=== PATIENT | male | born 1975 | race Caucasian/White ===

== ENCOUNTER 2024-03-06 08:50 | Emergency (ER) | payer OTHER, SELFPAY ==
[2024-03-06] VITALS (11 sets, daily range): BP systolic 126–148; BP diastolic 78–88; PULSE 57–72; RESP 18; TEMP 36; O2SAT 96–99; BMI 30.5
--- NOTE | 2024-03-06 09:18 | CRLHL7_ITS ---
For Patients: As a result of the 21st Century Cures Act, medical imaging exams and procedure reports are released immediately into your electronic medical record. You may view this report before your referring provider. If you have questions, please contact your health care provider. INDICATION: Fall. Hit back of head 03/04/2024. Headache and nausea. COMPARISON: None TECHNIQUE: CT examination of the head was performed as axial sections without intravenous contrast. Images were obtained from the vertex of the skull through the skull base. Please note that all CT scans at this facility use dose modulation, iterative reconstruction, and/or weight-based dosing when appropriate to reduce radiation dose to as low as reasonably achievable. FINDINGS: Sulci and ventricles are overall of normal caliber for patient age. Streak artifact somewhat limits the evaluation in the posterior fossa and the skull base especially the temporal lobes and the contents of the middle cranial fossa. There is a subdural hematoma noted. This is primarily bifrontal, right greater than left and more pronounced inferiorly. Also question an inferior frontal contusion. See series 2, image 22 where there may be a small parenchymal contusion in the gyrus rectus. There is also a small amount of interhemispheric subdural hemorrhage. There are some punctate densities in the right parieto-occipital location which may represent a small amount of subdural blood deep within the sulci. Consider an angiogram to rule out a ruptured aneurysm. It is not clear that this is entirely posttraumatic in nature. No acute calvarial injury. I discussed the above findings with Dr. Taty Napier at 9:40 a.m. on March 06, 2024 IMPRESSION: 1. Bilateral subdural hematoma. This is mainly bifrontal, right greater than left with maximum depth of about 6 millimeters. There may also be subtle subarachnoid blood posteriorly in the parieto-occipital location. I also question in inferior left frontal contusion though artifact limits the examination in this area. A small amount of interhemispheric subdural hemorrhage is also noted anteriorly. There is no significant mass effect upon any cerebral structure. No intraventricular hemorrhage 2. Consider an angiogram for the possibility of a ruptured vascular abnormality. Please note that all CT scans at this facility use dose modulation, iterative reconstruction, and/or weight-based dosing when appropriate to reduce radiation dose to as low as reasonably achievable. Dictated by Jeremy Fox MD @ 03/06/2024 9:46:11 AM (Electronically Signed)
[2024-03-06 09:48] LABS: Hemoglobin* 16.2 gm/dL (13.5-17.5); Immature Granulocytes Pct Auto 0.1 %; Lymphocytes Percent Auto 9.8 % (20-44); Mean Corpuscular HGB Conc 34 gm/dL (32-36); Mean Corpuscular Hemoglobin 30 pg (26-34); Mean Corpuscular Volume 88 fL (80-100); Monocytes Percent Auto 7.2 % (0.0-11.0); Neutrophils Percent Auto 82.9 % (42.0-72.0); Platelet Count* 318 K/uL (140-440); RDW Coefficient of Variation % 12.2 % (11.5-15.5); Red Blood Count 5.43 m/uL (4.30-5.90); White Blood Count* 16.42 K/uL (4.50-11.00)
[2024-03-06 09:49] LABS: Slide Review Reflex No
--- NOTE | 2024-03-06 09:53 | CT_ITS ---
Patient: JELANI RO Facility:?[facility] RIS Patient ID:?[id number] Site Patient [id number]:?[id number]. Site :?[id number] Study:?CT-Head Angio W/ 95CC ISOVUE 370-03/06/2024 10:21:08 AM Ordering Physician:Stephanie Posey Final Report: DATE: 03/06/2024 CLINICAL HISTORY: Patient with headache. TECHNIQUE: Standard helical CT image acquisition through the intracranial circulation following intravenous administration of contrast material with bolus tracking. 2D and 3D MIP images for post-processing were performed and interpreted on an independent workstation and 3D images were permanently archived. COMPARISON: CT same day. FINDINGS: There is no cerebral aneurysm or large vessel occlusion. The right internal carotid artery is normal. The right middle cerebral artery and its branches are normal. The right anterior cerebral artery and its branches are normal. The left internal carotid artery is normal. The left middle cerebral artery and its branches are normal. The left anterior cerebral artery and its branches are normal. The anterior communicating artery is well visualized and appears normal. The right vertebral artery and PICA are normal. The left vertebral artery and PICA are normal. The vertebral arteries are codominant. The basilar artery is patent and appears normal. The right posterior cerebral artery is normal. The left posterior cerebral artery is normal. The visualized venous structures are patent. IMPRESSION: Patent proximal intracranial vasculature without intracranial aneurysms. Please note that all CT scans at this facility use dose modulation, iterative reconstruction, and/or weight-based dosing when appropriate to reduce radiation dose to as low as reasonably achievable. Dictated by Jose Luis Vanegas MD @ 03/06/2024 3:45:24 PM Signed by:?Jose Luis Vanegas MD @03/06/2024 3:45:24 PM (Electronic Signature)
[2024-03-06 09:59] LABS: Albumin* 5.2 g/dL (3.3-5.0); Chloride* 101 mmol/L (96-114); Sodium* 142 mmol/L (135-149)
[2024-03-06 10:01] LABS: Creatinine* 0.8 mg/dL (0.5-1.5); Est. Creatinine Clearance* 106.72; Estimated Glomerular Filt Rate 110 ml/min
[2024-03-06 10:02] LABS: Alanine Aminotransferase* 34 U/L (4-50); Alkaline Phosphatase* 113 U/L (40-150); Anion Gap 13 mEq/L (7-15); Aspartate Amino Transferase* 30 U/L (12-35); Bilirubin Direct* 0.4 mg/dL (0.0-0.5); Blood Urea Nitrogen* 18 mg/dL (5-24); Carbon Dioxide* 28 mmol/L (20-32); Glucose* 129 mg/dL (60-115); Magnesium* 2.5 mg/dL (1.5-2.6); Total Protein* 8.5 g/dL (6.0-8.3)
[2024-03-06] MEDS: ONDANSETRON 2 MG/ML inj 4 MG IVP (10:03)
[2024-03-06 10:05] LABS: D Dimer Quantitative* 0.41 ug/ml (0.00-0.50); INR 0.95 (0.91-1.10); Partial Thromboplastin Time* 27 Seconds (23-33); Prothrombin Time 13.2 Seconds
--- NOTE | 2024-03-06 10:54 | ED_ITS ---
HPI - General Adult General Chief complaint: Head Injury/Pain Stated complaint: Fall possible head injury headache dizzy Time Seen by Provider: 03/06/24 09:06 History of Present Illness HPI narrative: Patient is a 48-year-old male here with his for evaluation of headache following an incident on Monday evening. Presents to the ER on Monday. He notes that he was in the garage on Monday around 7:00 p.m.. He really has no memory of what happened, he says that he found himself inside the house, he had pain in the back of his head and they presume that he must have passed out and hit his head because they found his glasses underneath the grill and the garage. However, he has no memory of becoming lightheaded or falling, he has no memory of waking up on the garage floor and has no memory of how he got into the house. Since then, he has had a frontal headache and has had multiple episodes of vomiting. He says he was vomiting every couple of hours although last night he did somewhat better. He continues to note some nausea however. He also feels like his hearing is somewhat decreased and notes that his balance seems a little off. He denies prior history of seizure or headaches. He denies recent illness, other vomiting or diarrhea, fevers, rashes etcetera. He is not anticoagulated. His general health is good, he had a colonoscopy a couple weeks ago, a polyp was removed but he denies any bloody or black stools. He does not smoke. Drinks rarely. No medications. He did take some Tylenol this morning. Related Data Allergies Allergy/AdvReac Type Severity Reaction Status Date / Time Unable to Assess Allergy Unverified 03/06/24 08:58 Review of Systems Status of ROS: Reports: 10 or more systems reviewed and unremarkable except as noted in History and below PFSH PFS Social History Smoking Status: Never smoker Do you use any of these nicotine containing products: None How often do you have a drink containing alcohol: never AUDIT-C Alcohol total score: 0 Non-prescribed substance use: denies use Exam Narrative: Exam Narrative: Vital signs as noted above. In general, an alert, well-appearing patient. He looks comfortable, speaking easily. Head: Normocephalic, atraumatic. I do not feel any posterior hematoma, there is no laceration abrasion. He says the swelling has decreased over the past 24 hours. Eyes: Pupils are equal reactive. Extraocular movements are full. Conjunctivae are normal. ENT: Mucous membranes are moist. Throat is normal. Neck: Supple without lymphadenopathy. Nontender to palpation. Heart: Bradycardic, regular. No significant murmur. Lungs: Clear bilaterally. No increased work of breathing, crackles or wheezes. Abdomen: Soft and nontender. No organomegaly. Extremities: Well perfused. No edema. No calf tenderness. Pulses intact. Neurologic: Patient is alert and oriented to person and place. Speech is fluent. Face is symmetric. Moves all extremities equally. He is mildly ataxic when testing his gait, sways a bit withdrawn GERD testing although he did not fall over. Minimal ataxia noted on finger-nose testing, he was able to correct with practice. Heel-cruz testing normal. Affect: Normal. Skin: Warm and dry. Well perfused. Const: Vital Signs, click to edit/add: Vital Signs - 24 hr 03/06/24 08:53 03/06/24 09:31 03/06/24 09:32 Temperature 96.8 F L Pulse Rate 68 60 Pulse Rate [Left P ulse Oximeter] 62 Respiratory Rate 18 Blood Pressure 126/78 Blood Pressure [Le ft Upper Arm] 148/82 H Pulse Oximetry 97 96 97 Oxygen Delivery Me thod Room Air 03/06/24 09:36 03/06/24 09:45 03/06/24 10:00 Temperature Pulse Rate 57 L 60 Pulse Rate [Left P ulse Oximeter] Respiratory Rate Blood Pressure Blood Pressure [Le ft Upper Arm] Pulse Oximetry 97 97 96 Oxygen Delivery Me thod 03/06/24 10:02 03/06/24 10:15 03/06/24 10:30 Temperature Pulse Rate 61 58 L 72 Pulse Rate [Left P ulse Oximeter] Respiratory Rate Blood Pressure 137/87 Blood Pressure [Le ft Upper Arm] Pulse Oximetry 97 99 98 Oxygen Delivery Me thod 03/06/24 10:32 03/06/24 10:45 Temperature Pulse Rate 71 71 Pulse Rate [Left P ulse Oximeter] Respiratory Rate Blood Pressure 128/88 Blood Pressure [Le ft Upper Arm] Pulse Oximetry 98 97 Oxygen Delivery Me thod Course Course ED Course: Following initial evaluation, I sent patient for CT of the head to evaluate for intracranial hemorrhage. An EKG was also ordered, in addition to blood work. By my review, CT scan did show subdural blood particularly in the right frontal area, final radiology read also notes possible subarachnoid blood: FINDINGS: Sulci and ventricles are overall of normal caliber for patient age. Streak artifact somewhat limits the evaluation in the posterior fossa and the skull base especially the temporal lobes and the contents of the middle cranial fossa. There is a subdural hematoma noted. This is primarily bifrontal, right greater than left and more pronounced inferiorly. Also question an inferior frontal contusion. See series 2, image 22 where there may be a small parenchymal contusion in the gyrus rectus. There is also a small amount of interhemispheric subdural hemorrhage. There are some punctate densities in the right parieto- occipital location which may represent a small amount of subdural blood deep within the sulci. Consider an angiogram to rule out a ruptured aneurysm. It is not clear that this is entirely posttraumatic in nature. No acute calvarial injury. I discussed the above findings with Dr. Taty Napier at 9:40 a.m. on March 06, 2024 IMPRESSION: 1. Bilateral subdural hematoma. This is mainly bifrontal, right greater than left with maximum depth of about 6 millimeters. There may also be subtle subarachnoid blood posteriorly in the parieto-occipital location. I also question in inferior left frontal contusion though artifact limits the examination in this area. A small amount of interhemispheric subdural hemorrhage is also noted anteriorly. There is no significant mass effect upon any cerebral structure. No intraventricular hemorrhage 2. Consider an angiogram for the possibility of a ruptured vascular abnormality. Overall, my concern would be that this represents a primary subarachnoid bleed with syncope plus or minus seizure on Monday evening, now with subdural bleeding and evidence of some traumatic bleeding in the brain. I spoke with Dr. Perez at [facility] who has accepted the patient in transfer to the ICU there. I did order CT angiogram to evaluate for possible aneurysm. Preliminary read is as follows:Preliminary Report: The thoracic aorta is nonaneurysmal. Patent common carotid arteries. The carotid bifurcations demonstrate no significant atherosclerotic plaque or filling defect. Patent distal internal carotid arteries. Patent, codominant bilateral vertebral arteries. Dictated by Mickey Choi MD @ 03/06/2024 10:41:05 AM Read by: Mickey Choi MD @03/06/2024 10:41:12 AM No reported aneurysm although aneurysm is not specifically mentioned as ruled out. This is a preliminary read. He has remained neurologically intact and without further significant symptoms while in the emergency department. His blood pressures were under 140 systolic without treatment, he did receive Keppra 500 mg IV as well as Zofran. I had intended to order some morphine for him for headache but he was transferred prior to receiving that. Labs are notable for a white blood cell count of 16, normal hemoglobin, normal coags, normal metabolic panel, magnesium, LFTs. Negative troponin. He had an EKG which by my review showed a sinus rhythm ventricular rate of 63. No acute ST segment changes. Critical care 30 minutes Vital Signs Vital signs: Initial Vital Signs Temperature 96.8 F L 03/06/24 08:53 Temperature Source Temporal Artery Scan 03/06/24 08:53 Pulse Rate 62 03/06/24 08:53 Pulse Rhythm Regular 03/06/24 08:53 Pulse Strength 3+ Normal 03/06/24 08:53 Respiratory Rate 18 03/06/24 08:53 Blood Pressure 148/82 H 03/06/24 08:53 Blood Pressure Mean 104 03/06/24 08:53 Blood Pressure Position Sitting 03/06/24 08:53 Pulse Oximetry 97 03/06/24 08:53 Oxygen Delivery Method Room Air 03/06/24 08:53 Vital Signs Temperature 96.8 F L 03/06/24 08:53 Pulse Rate 62 03/06/24 08:53 Respiratory Rate 18 03/06/24 08:53 Blood Pressure 148/82 H 03/06/24 08:53 Pulse Oximetry 97 03/06/24 08:53 Oxygen Delivery Method Room Air 03/06/24 08:53 Temperature 96.8 F L 03/06/24 08:53 Pulse Rate 71 03/06/24 10:45 Respiratory Rate 18 03/06/24 08:53 Blood Pressure 128/88 03/06/24 10:32 Pulse Oximetry 97 03/06/24 10:45 Oxygen Delivery Method Room Air 03/06/24 08:53 Medications Administered Medications: Discontinued Medications Generic Name Dose Route Start Last Admin Trade Name Freq PRN Reason Stop Dose Admin Levetiracetam 500 mg/ Sodium 105 mls @ 420 mls/hr 03/06/24 09:49 03/06/24 10:45 Chloride IVPB 03/06/24 09:50 Infused ONCE ONE Infusion Ondansetron HCl 4 mg 03/06/24 09:54 03/06/24 10:03 Ondansetron 2 Mg/Ml Inj IVP 03/06/24 09:55 4 mg ONCE ONE Administration Medical Decision Making Lab Data Labs: Lab Results 03/06/24 Range/Units 09:28 WBC 16.42 H (4.50-11.00) K/uL RBC 5.43 (4.30-5.90) m/uL Hgb 16.2 (13.5-17.5) gm/dL Hct 48.0 (37.0-53.0) % MCV 88 (80-100) fL MCH 30 (26-34) pg MCHC 34 (32-36) gm/dL RDW Coeff of Yannick 12.2 (11.5-15.5) % Plt Count 318 (140-440) K/uL Neut % (Auto) 82.9 H (42.0-72.0) % Lymph % (Auto) 9.8 L (20-44) % [place] % (Auto) 7.2 (0.0-11.0) % Eos % (Auto) 0.0 (0.0-7.0) % Baso % (Auto) 0.0 (0.0-3.0) % Neut # (Auto) 13.60 H (1.7-7.0) K/uL Lymph # (Auto) 1.60 (0.90-2.90) K/uL [place] # (Auto) 1.20 H (0.00-0.90) K/UL Eos # (Auto) 0.00 (0.00-0.50) K/uL Baso # (Auto) 0.00 (0.00-0.30) K/uL Abs Immat Gran (auto) 0.00 (0.00-0.30) K/uL Imm/Tot Granulo (auto) 0.1 % INR 0.95 (0.91-1.10) APTT 27 (23-33) Seconds D-Dimer Quant (PE/DVT) 0.41 (0.00-0.50) ug/ml Sodium 142 (135-149) mmol/L Potassium 4.0 (3.6-5.1) mmol/L Chloride 101 (96-114) mmol/L Carbon Dioxide 28 (20-32) mmol/L Anion Gap 13 (7-15) mEq/L BUN 18 (5-24) mg/dL Creatinine 0.8 (0.5-1.5) mg/dL Estimated Creat Clear 106.72 Estimated GFR 110 ml/min Glucose 129 H (60-115) mg/dL Calcium 10.0 (8.4-10.6) mg/dL Magnesium 2.5 (1.5-2.6) mg/dL Total Bilirubin 1.0 (0.1-1.5) mg/dL Direct Bilirubin 0.4 (0.0-0.5) mg/dL AST 30 (12-35) U/L ALT 34 (4-50) U/L Alkaline Phosphatase 113 (40-150) U/L Total Protein 8.5 H (6.0-8.3) g/dL Albumin 5.2 H (3.3-5.0) g/dL POC Troponin I 0.00 L (0.01-0.04) ng/ml Discharge Plan Discharge Clinical Impression: Acute subdural hematoma, Subarachnoid hemorrhage Patient Disposition: [facility] Condition: Stable Stand Alone Forms: MyHealth Info Instructions
== END 2024-03-06 10:50 | disposition short-term general hospital (02) ==
PROVIDERS: Emergency Provider Emergency Medicine; PCP Student in an Organized Health Care Education/Training Program
DX: S06.5XAA Traumatic subdural hemorrhage with loss of consciousness status unknown, initial encounter (principal)
CPT/HCPCS: 36415; 70450; 70496; 70498; 80048; 80076; 83735; 84484; 85025; 85379; 85610; 85730; 93005; 94761; 96365; 96375; 99284; 99285; J1953; J2405; Q9967

== ENCOUNTER 2024-03-06 10:49 | Outpatient (CLI) | payer OTHER, SELFPAY ==
--- OUTSIDE RECORDS SUMMARY | 2024-03-09 08:50 | XMS_ITS | Clinical Summary ---
Author Organization [facility] Address [place], [place] [address] Care Team Providers Care Examination Grader Name Role Phone Alta Vasquez Primary Care Provider [phone] Allergies No known active allergies Medications Medication Sig Dispensed Refills Start Date End Date Status CPAPIndications:MERLY (obstructive sleep apnea) CPAP machine for home use at pressure 12.8 cm/H2o, full face mask x1/3month with a full face cushion x1/mo 1 Device 11 08/19/2020 Active oxyCODONE (ROXICODONE) 5 mg immediate release tabletIndications:T raumatic subdural hematoma with loss of consciousness of 30 minutes or less (HC) Take 1 Tablet (5 mg) by mouth every 6 hours if needed for Pain. 15 Tablet 03/07/2024 Active levETIRAcetam (Keppra) 500 mg tabletIndications:T raumatic subdural hematoma with loss of consciousness of 30 minutes or less (HC) Take 1 Tablet (500 mg) by mouth two times daily for 7 days. 14 Tablet 03/07/2024 4 Active ondansetron (ZOFRAN ODT) 4 mg disintegrating tabletIndications:T raumatic subdural hematoma with loss of consciousness of 30 minutes or less (HC) Place 2 Tablets (8 mg) on the tongue every 8 hours if needed for Nausea/Vomiting for up to 5 days. 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 90 Tablet 3 01/15/2024 4 Discontinu ed(*Med complete/R egimen complete/L evel of care change) lisdexamfetamine (Vyvanse) 20 mg capsuleIndications: Attention deficit disorder (ADD) without hyperactivity Take 1 Capsule (20 mg) by mouth once daily. 30 Capsule 02/26/2024 4 Discontinu ed(*IP Discontinu ed) Hospital, Clinic, or Other Facility Administered Medication Ordered Dose Route Frequency Start Date End Date Status fentaNYL (PF) (SUBLIMAZE) 50 mcg/mL injection 100 mcgIndications:Screening for colon cancer 100 mcg IV ONE TIME 02/14/2024 02/14/2024 Ended midazolam (VERSED) injection 4 mgIndications:Screening for colon cancer 4 mg IV ONE TIME 02/14/2024 02/14/2024 Ended Active Problems Problem Noted Date Diagnosed Date Traumatic subdural hematoma with loss of consciousness of 30 minutes or less 03/06/2024 Sialorrhea 05/29/2017 MERLY 04/03/2017 AHI-52 with oxygen drops 04/10/20 17 DDD (degenerative disc disease), cervical 2016 Encounters Date Type Department Care Team Description 03/08/2024 Patient Outreach [facility] [address] [place] [address] Pilar Schreiber, RN Primary RN Care Management (Lace 12); Hospital F/U 03/07/2024 Orders Only [facility] [address] [facility] [address] [place] [address] Lesly Marin NP <No scans attached> 03/06/2024 11:48 AM CDT - 03/07/2024 2:40 PM CDT Hospital Encounter [facility] [address] [place] [address] Darinel Perez MBBS Malik, Muhammad Ibrahim, MD Traumatic subdural hematoma with loss of consciousness of 30 minutes or less (HC) (Primary Dx) Discharge Disposition: Home Self Care 03/06/2024 Nurse Triage [facility] [address] [place] [address] Alta Vasquez DO Head Injury 02/26/2024 8:55 AM CDT Office Visit [address] [address] Alta Vasquez DO Medication Management (Nothing different) 02/26/2024 Travel 02/14/2024 8:00 AM CDT Office Visit [address] [address] Eulogio Stephens MD Procedure (colonoscopy) 02/14/2024 Travel 02/07/[address] [address] Eulogio Stephens MD Appointment Reminder (Colonoscopy 02/14/24) 01/15/2024 7:15 AM CDT Office Visit [address] [address] Alta Vasquez DO Behavioral Problem (ADHD assessment from online provider - will fax report ) 01/15/2024 Travel 01/02/[address] [address] Alta Vasquez DO Results 01/01/2024 7:15 AM CDT Office Visit [address] [address] Alta Vasquez DO Physical (48 year old ); Behavior Problem (Hard to focus at work, staying concentrated, frustrated ) 01/01/[address] [address] Eulogio Stephens MD Screening 01/01/2024 Travel from Last 3 Months Immunizations Name Administration Dates Next Due Tdap 05/05/2017 Family History Medical History Relation Name Comments Lung cancer Father Stroke Father Relation Name Status Comments Father Social History Tobacco Use Types Packs/Day Years Used Date Smoking Tobacco: Former Cigarettes Q uit: 1990 Smokeless Tobacco: Never Tobacco Cessation:Counseling Given: Yes Alcohol Use Standard Drinks/Week Comments Yes 0 (1 standard drink = 0.6 oz pur e alcohol) occ PHQ-2 Answer Date Recorded PHQ-2 TOTAL SCORE 0 01/01/2024 Social Connections Answer Date Recorded Frequency of Communication with Friends and Fami ly 0 01/01/2024 Financial Resource Strain Answer Date R ecorded Difficulty of Paying Living Expenses 3 01/01/2024 Difficulty of Paying Living Expenses Not on file 01/01/2024 Food Insecurity Answer Date Recorded Worried About Running Out of Food in the Last Ye ar 1 01/01/2024 Transportation Needs Answer Date Record ed Lack of Transportation (Medical) 1 01/01/2024 Housing Stability Answer Date Recorded Unable to Pay for Housing in the Last Year 1 01/01/2024 Sex and Gender Information Value Date Recorded Sex Assigned at Not on file Gender Identity Not on file Sexual Orientation Not on file Obstetrics History Last Filed Vital Signs Vital Sign Reading Time Taken Comments Blood Pressure 128/77 03/07/2024 9:07 AM CDT Pulse 53 03/07/2024 1:00 PM CDT Temperature 36.8 ??C (98.3 ??F) 03/07/2024 7:30 AM CD T Respiratory Rate 18 03/07/2024 7:30 AM CDT Oxygen Saturation 96% 03/07/2024 1:00 PM CDT Inhaled Oxygen Concentration - - Weight 80.8 kg (178 lb 2.1 oz) 03/07/2024 4:00 A M CDT Height 169 cm (5' 6.54) 01/01/2024 7:25 AM CDT Body Mass Index 28.29 01/01/2024 7:25 AM CDT Plan of Treatment Upcoming Encounters Date Type Department Care Team (Late st Contact Info) Description 03/11/2024 12:35 PM CDT Office Visit [facility] [address] [place] [address] Hill Sauceda MD [address] [place] [address] 03/15/2024 3:15 PM CDT Appointment [facility] [place] [address] [place] [address] [place] [address] [place] [address] 04/01/2024 7:15 AM CDT Office Visit [facility] [address] [place] [address] Alta Vasquez DO [address] [place] [address] 05/07/2024 10:00 AM MAIL ORDER SORTER Office Visit [facility] [address] [place] [address] Denis Saunders MD [address] [place] [address] Health Maintenance Due Date Last Done Comments COVID-19 vaccine series ( season) 2024 07/03/2021, 12/25/2020, 11/27/2020 Influenza for age 9-49 02/18/2024 BMI (ht and wt on same day) for age 18+ 12/31/2024 01/01/2024, 05/05/2017, 03/13/2017, Additional history exists Depression screening for age 12+ 01/01/2025 01/02/2024, 01/01/2024, 01/01/2024, Additional history exists Tetanus booster 05/05/2027 05/05/2017 Lipids for age 45-75 12/31/2028 01/01/2024, 05/05/20 17 Colonoscopy through age 75 02/13/203402/13, 02/14/2024, 02/14/2024 Tdap Completed 05/05/2017 HIV for age 15-65 Completed 01/01/2024 Hepatitis C screening for age 18-79 Completed 01/01/2024 Pneumococcal series for age 6-64 Aged Out No longer eligible based on patient's age to complete this topic Procedures Procedure Name Priority Date/Time Associated Diagnosis Comments SCAN-CARDIAC STRIP 03/07/2024 7: 30 AM CDT GLUCOSE METER Timed 03/07/2024 6:[address] HEAD BRAIN WO Routine 03/07/2024 4:20 AM CDT CAL[facility]UM IONIZED [facility]OSPITAL DRAW ONLY Early AM 03/07/2024 3:52 AM CDT CBC WITH AUTO DIFFERENTIAL Early AM 03/07/2024 3:51 AM CDT PHOSPHORUS Early AM 03/07/2024 3:51 AM CDT MAGNESIUM Early AM 03/07/2024 3:51 AM CDT COMP METABOLIC PANEL Early AM 03/07/2024 3:51 AM CDT CBC WITH AUTO DIFFERENTIAL Early AM 03/07/2024 3:51 AM CDT GLUCOSE METER Timed 03/07/2024 12:57 AM CDT SCAN-CARDIAC STRIP 03/06/2024 8: [address] ANGIO HEAD Routine 03/06/2024 1:[address] HEAD BRAIN WO Timed 03/06/2024 1:00 PM CDT GLUCOSE METER Timed 03/06/2024 12:30 PM CDT CBC WITH AUTO DIFFERENTIAL STAT 03/06/2024 12:05 PM CDT HEPATIC FUNCTION PANEL STAT 03/06/2024 12:05 PM CDT PROTIME-INR STAT 03/06/2024 12:05 PM CDT CBC WITH AUTO DIFFERENTIAL STAT 03/06/2024 12:05 PM CDT BASIC METABOLIC PANEL STAT 03/06/2024 12:05 PM CDT EKG 12 LEAD STAT 03/06/2024 12:01 PM CDT PATH TISSUE EXAM Routine 02/14/2024 9:11 AM CDT Screening for colon cancer Polyp of colon, unspecified part of colon, unspecified type COLONOSCOPY SCREENING Routine 02/14/2024 7:55 AM CDT Screening for colon cancer COLONOSCOPY 02/14/2024 7:46 AM CDT BASIC METABOLIC PANEL Routine 01/01/2024 8:17 AM CDT Annual physical exam LIPID PANEL Routine 01/01/2024 8:17 AM CDT Screening, lipid ANTI HCV Routine 01/01/2024 8:17 AM CDT Need for hepatitis C screening test ANTI HIV 1/2 Routine 01/01/2024 8:17 AM CDT Screening for HIV (human immunodeficiency virus) from Last 3 Months Results * SCAN-CARDIAC STRIP (03/07/2024 7:30 AM CDT) Scanner OTHER * GLUCOSE METER (03/07/2024 6:18 AM CDT) Only the most recent of3 resultswithin the time period is included. GLUCOSE METER 96 65 - 100 mg/dL 03/07/2024 6:24 AM CDT [facility] Blood BLOOD SPECIMEN / Unknown 03/07/2024 6:18 AM CDT 03/07/2024 6:24 AM CDT Nory Castellano MD CHEMISTRY [facility] [address] [place] [address], * CT HEAD BRAIN WO (03/07/2024 4:20 AM CDT) Only the most recent of2 resultswithin the time period is included. Anatomical Region Laterality Modality HEAD, BRAIN Computed Tomogra phy 03/07/2024 7:35 AM CDT Narrative 03/07/2024 7:35 AM CDT For Patients: ??As a result of the Cures Act, medical imaging exams and procedure reports are released immediately into your electronic medical record. ??You may view this report before your referring provider. ??If you have questions, please contact your health care provider. Indication: Subdural hemorrhage follow SDH Technique: CT of the head without contrast. Coronal and sagittal reformats. Bone and soft tissue windows. Comparison: 03/06/2024 Findings: Stable hyperdense acute blood products along the right frontal convexity, some of which are subdural in location with likely superimposed subarachnoid hemorrhage. Stable subdural hematoma along the anterior interhemispheric fissure. Stable small hemorrhagic contusion in the left gyrus rectus (series 2, image 26) with adjacent subarachnoid hemorrhage and small subdural hematoma measuring up to 5 mm along the left frontal convexity. Stable subarachnoid blood products along the left temporal convexity. Decreased size of the left temporal/sylvian fissure subdural hematoma measuring up to 3 mm. No significant mass effect. No midline shift. No hydrocephalus. No acute cortical infarcts. Mild polypoid mucosal thickening in the maxillary sinus. The pituitary gland, optic chiasm, pineal gland, and cerebellar tonsils are unremarkable. The orbits are unremarkable. Rightward deviation of the nasal septum. The calvarium is intact. Impression: 1. Stable subdural hematoma and subarachnoid hemorrhage along the right frontal convexity. Stable small hemorrhagic contusion in the left gyrus rectus with adjacent small subarachnoid blood products and small subdural hematoma measuring up to 5 mm along the left frontal convexity. Stable subarachnoid blood products along the left temporal convexity. Decreased size of the left temporal/sylvian fissure subdural hematoma measuring up to 3 mm. 2. No significant mass effect. No midline shift. No hydrocephalus. No acute infarct. Please note that all CT scans at this facility use dose modulation, iterative reconstruction, and/or weight-based dosing when appropriate to reduce radiation dose to as low as reasonably achievable. Dictated by Rajan Méndez MD @ 03/07/2024 7:35:24 AM (Electronically Signed) Procedure Note Rajan Méndez MD - 03/07/2024 For Patients: As a result of the Cures Act, medical imagingexams and procedure reports are released immediately into your electronicmedical record. You may view this report before your referring provider.If you have questions, please contact your health care provider. Indication: Subdural hemorrhage follow SDH Technique: CT of the head without contrast. Coronal and sagittal reformats. Bone andsoft tissue windows. Comparison: 03/06/2024 Findings: Stable hyperdense acute blood products along the right frontal convexity,some of which are subdural in location with likely superimposedsubarachnoid hemorrhage. Stable subdural hematoma along the anteriorinterhemispheric fissure. Stable small hemorrhagic contusion in the leftgyrus rectus (series 2, image 26) with adjacent subarachnoid hemorrhageand small subdural hematoma measuring up to 5 mm along the left frontalconvexity. Stable subarachnoid blood products along the left temporalconvexity. Decreased size of the left temporal/sylvian fissure subduralhematoma measuring up to 3 mm. No significant mass effect. No midlineshift. No hydrocephalus. No acute cortical infarcts. Mild polypoid mucosalthickening in the maxillary sinus. The pituitary gland, optic chiasm,pineal gland, and cerebellar tonsils are unremarkable. The orbits areunremarkable. Rightward deviation of the nasal septum. The calvarium isintact. Impression: 1. Stable subdural hematoma and subarachnoid hemorrhage along the rightfrontal convexity. Stable small hemorrhagic contusion in the left gyrusrectus with adjacent small subarachnoid blood products and small subduralhematoma measuring up to 5 mm along the left frontal convexity. Stablesubarachnoid blood products along the left temporal convexity. Decreasedsize of the left temporal/sylvian fissure subdural hematoma measuring upto 3 mm. 2. No significant mass effect. No midline shift. No hydrocephalus. Noacute infarct. Please note that all CT scans at this facility use dose modulation,iterative reconstruction, and/or weight-based dosing when appropriate toreduce radiation dose to as low as reasonably achievable. Dictated by Rajan Méndez MD @ 03/07/2024 7:35:24 AM (Electronically Signed) Lesly Marin [employer] [facility] * (ABNORMAL) CAL[facility]UM IONIZED HOSPITAL DRAW ONLY (03/07/2024 3:52 AM CDT) [facility] CALCIUM,IONIZE D 1.14(L) 1.15 - 1.27 mmol/L 03/07/2024 4:11 AM CDT [facility] Blood BLOOD SPECIMEN / Unknown Butterfly / Unknown 03/07/2024 3:52 AM CDT 03/07/2024 4:05 AM CDT Nory Castellano MD CHEMISTRY [facility] [address] [place] [address], [place] * (ABNORMAL) CBC WITH AUTO DIFFERENTIAL (03/07/2024 3:51 AM CDT) Only the most recent of2 resultswithin the time period is included. [facility] WHITE BLOOD COUNT 12.9(H) 4.5 - 11.0 thou/cu mm 03/07/2024 4:12 AM CDT [facility] RED BLOOD COUNT 5.33 4.30 - 5.90 mil/cu mm 03/07/2024 4:12 AM CDT [facility] HEMOGLOBIN 16.1 13.5 - 17.5 g/dL 03/07/2024 4:12 AM CDT [facility] HEMATOCRIT 46.6 37.0 - 53.0 % 03/07/2024 4:12 AM CDT [facility] MCV 87 80 - 100 fL 03/07/2024 4:12 AM CDT [facility] MCH 30.2 26.0 - 34.0 pg 03/07/2024 4:12 AM CDT [facility] MCHC 34.5 32.0 - 36.0 g/dL 03/07/2024 4:12 AM CDT [facility] RDW 12.4 11.5 - 15.5 % 03/07/2024 4:12 AM CDT [facility] PLATELET COUNT 311 140 - 440 thou/cu mm 03/07/2024 4:12 AM CDT [facility] MPV 9.3 6.5 - 11.0 fL 03/07/2024 4:12 AM CDT [facility] NRBC 0.0 % 03/07/2024 4:12 AM CDT [facility] ABS NRBC 0.0 thou /cu mm 03/07/2024 4:12 AM CDT [facility] % NEUT 69.3 % 03/07/2024 4:12 AM CDT [facility] % LYMPH 20.7 % 03/07/2024 4:12 AM [facility] % MONO 9.0 % 03/07/2024 4:12 AM [facility] % EOS 0.4 % 03/07/2024 4:12 AM [facility] % BASO 0.4 % 03/07/2024 4:12 AM [facility] % IMMATURE GRAN (METAS,MYELOS,WI OS) 0.2 % 03/07/2024 4:12 AM [facility] ABSOLUTE NEUTROPHILS 8.9(H) 1.7 - 7.0 thou/cu mm 03/07/2024 4:12 AM T [facility] ABSOLUTE LYMPHOCYTES 2.7 0.9 - 2.9 thou/cu mm 03/07/2024 4:12 AM T [facility] ABSOLUTE MONOCYTES 1.2(H) <0.9 thou/cu mm 03/07/2024 4:12 AM T [facility] ABSOLUTE EOSINOPHILS 0.1 <0.5 thou/cu mm 03/07/2024 4:12 AM T [facility] ABSOLUTE BASOPHILS 0.1 <0.3 thou/cu mm 03/07/2024 4:12 AM CDT [facility] ABSOLUTE IMMATURE GRANULOCYTES(MET ,MYELOS,PROS) 0.0 <0.3 thou/cu mm 03/07/2024 4:12 AM CDT [facility] Blood BLOOD SPECIMEN / Unknown Butterfly / Unknown 03/07/2024 3:51 AM CDT 03/07/2024 4:04 AM CDT Nory Castellano MD [facility] [address] [place] [id number], [place] * PHOSPHORUS (03/07/2024 3:51 AM CDT) PHOSPHORUS 3.4 2.5 - 4.5 mg/dL 03/07/2024 4:32 AM CDT [facility] Blood BLOOD SPECIMEN / Unknown Butterfly / Unknown 03/07/2024 3:51 AM CDT 03/07/2024 4:04 AM CDT Nory Castellano MD CHEMISTRY Performing Organization Address City/[facility]/ZIP Co de Phone Number [facility] [address] [place], [place] [id number], [place] * MAGNESIUM (03/07/2024 3:51 AM CDT) MAGNESIUM 2.4 1.6 - 2.6 mg/dL 03/07/2024 4:32 AM CDT [facility] Blood BLOOD SPECIMEN / Unknown Butterfly / Unknown 03/07/2024 3:51 AM CDT 03/07/2024 4:04 AM CDT Nory Castellano MD CHEMISTRY [facility] [address] [place] [id number], [place] * (ABNORMAL) COMP METABOLIC PANEL (03/07/2024 3:51 AM CDT) [facility] SODIUM 140 136 - 145 mmol/L 03/07/2024 4:32 AM [facility] POTASSIUM 3.5 3.5 - 5.1 mmol/L 03/07/2024 4:32 AM [facility] CHLORIDE 101 98 - 107 mmol/L 03/07/2024 4:32 AM [facility] CO2,TOTAL 25 22 - 29 mmol/L 03/07/2024 4:32 AM T [facility] ANION GAP 14 5 - 18 03/07/2024 4:32 AM [facility] GLUCOSE 107(H) 70 - 99 mg/dL 03/07/2024 4:32 AM [facility] CALCIUM 9.3 8.6 - 10.0 mg/dL 03/07/2024 4:32 AM [facility] BUN 16 6 - 20 mg/dL 03/07/2024 4:32 AM [facility] CREATININE 0.87 0.70 - 1.20 mg/dL 03/07/2024 4:32 AM [facility] BUN/CREAT RATIO 18 10 - 20 4:32 AM [facility] eGFR >90 >90 mL/min/1.7 3m2 03/07/2024 4:32 AM [facility] Comment:As of 2021, eG FR is calculated by the CKD-EPI creatinine equation without race adjustment. ??eGFR can be influenced by muscle mass, exercise, and diet. ??The reported eGFR is an estimation only and is only applicable if the renal function is stable. ALBUMIN 4.6 4.0 - 4.9 g/dL 03/07/2024 4:32 AM T [facility] PROTEIN,TOTAL 7.4 6.0 - 8.0 g/dL 03/07/2024 4:32 AM [facility] BILIRUBIN,TOTAL 0.8 0.0 - 1.2 mg/dL 03/07/2024 4:32 AM CDT [facility] ALK PHOSPHATASE 114 40 - 129 IU/L 03/07/2024 4:32 AM CDT [facility] ALT (SGPT) 22 10 - 50 IU/L 03/07/2024 4:32 AM CDT [facility] AST (SGOT) 19 10 - 50 IU/L 03/07/2024 4:32 AM CDT [facility] Blood BLOOD SPECIMEN / Unknown Butterfly / Unknown 03/07/2024 3:51 AM CDT 03/07/2024 4:04 AM CDT Nory Castellano MD CHEMISTRY [facility] [address] [place] [address], * SCAN-CARDIAC STRIP (03/06/2024 8:52 PM CDT) Scanner OTHER * CT ANGIO HEAD (03/06/2024 1:07 PM CDT) Anatomical Region Laterality Modality HEAD, BRAIN Computed Tomogra phy 03/06/2024 1:47 PM CDT Addenda Addendum by Jose Luis Vanegas MD on 03/06/2024 6:46 PM CDT For Patients: ??As a result of the 21st Century Cures Act, medical imaging exams and procedure reports are released immediately into your electronic medical record. ??You may view this report before your referring provider. ?? If you have questions, please contact your health care provider. DATE: 03/06/2024 CLINICAL HISTORY: Patient with subdural hemorrhage. TECHNIQUE: Standard helical CT image acquisition through the intracranial circulation following intravenous administration of contrast material with bolus tracking. 2D and 3D MIP images for post-processing were performed and interpreted on an independent workstation and 3D images were permanently archived. COMPARISON: CT same day. FINDINGS: There is no cerebral aneurysm or large vessel occlusion. The right internal carotid artery is normal. The right middle cerebral artery and its branches are normal. The right anterior cerebral artery and its branches are normal. The left internal carotid artery is normal. The left middle cerebral artery and its branches are normal. The left anterior cerebral artery and its branches are normal. The anterior communicating artery is well visualized and appears normal. The right vertebral artery and PICA are normal. The left vertebral artery and PICA are normal. The vertebral arteries are codominant. The basilar artery is patent and appears normal. The right posterior cerebral artery is normal. The left posterior cerebral artery is normal. The visualized venous structures are patent. IMPRESSION: Patent proximal intracranial vasculature without intracranial aneurysms. Please note that all CT scans at this facility use dose modulation, iterative reconstruction, and/or weight-based dosing when appropriate to reduce radiation dose to as low as reasonably achievable. Dictated by Jose Luis Vanegas MD @ 03/06/2024 6:46:04 PM (Electronically Signed) Narrative 03/06/2024 3:56 PM CDT --- Preliminary Report --- --CT ANGIO HEAD Omnipaque 350 80cc-- No significant focal stenosis, occlusion or aneurysm of intracranial arteries. Preliminary Report by Dr. Cristal Ramachandran @ Mar 06 2024 ??1:47PM --- Preliminary Report --- Procedure Note Cristal Ramachandran MD / Jose Luis Vanegas MD - 03/06/2024 --- Preliminary Report --- --CT ANGIO HEAD Omnipaque 350 80cc-- No significant focal stenosis, occlusion or aneurysm of intracranialarteries. Preliminary Report by Dr. Cristal Ramachandran @ Mar 06 2024 1:47PM --- Preliminary Report --- Nory Castellano MD CT * (ABNORMAL) Protime - INR (03/06/2024 12:05 PM CDT) INR 1.2 <1.3 03/06/2024 12:29 PM CDT [facility] PROTIME 13.0(H) 10.3 - 12.3 sec 03/06/2024 12:29 PM CDT [facility] Blood BLOOD SPECIMEN / Unknown Venipuncture / Unknown 03/06/2024 12:05 PM CDT 03/06/2024 12:13 PM CDT Narrative [facility] - 03/06/2024 12:29 PM CDT ?Therapeutic Range 2.0-3.0 for most anticoagulated patients 2.5-3.5 or 4.0 for high risk patients The INR is only used for patients on stable oral anticoagulant therapy. It makes no significant contribution to the diagnosis or treatment of patients whose Protime is prolonged for other reasons. INR results are increased when heparin levels exceed 1.0 U/mL, which corresponds to an aPTT >125 seconds if the patient is on UFH. Darinel Perez [facility] LABORATORY [address] [place] [address], * Hepatic Function Panel (03/06/2024 12:05 PM CDT) ALBUMIN 4.8 4.0 - 4.9 g/dL 03/06/2024 12:59 PM CDT [facility] PROTEIN,TOTAL 8.0 6.0 - 8.0 g/dL 03/06/2024 12:59 PM CDT [facility] BILIRUBIN,TOTAL 0.6 0.0 - 1.2 mg/dL 03/06/2024 12:59 PM CDT [facility] BILIRUBIN,DIRECT 0.2 0.0 - 0.2 mg/dL 03/06/2024 12:59 PM CDT [facility] BILIRUBIN,INDIRE CT 0.4 0.2 - 0.8 mg/dL 03/06/2024 12:59 PM CDT [facility] ALK PHOSPHATASE 118 40 - 129 IU/L 03/06/2024 12:59 PM CDT [facility] ALT (SGPT) 25 10 - 50 IU/L 03/06/2024 12:59 PM CDT [facility] AST (SGOT) 24 10 - 50 IU/L 03/06/2024 12:59 PM CDT [facility] Blood BLOOD SPECIMEN / Unknown Venipuncture / Unknown 03/06/2024 12:05 PM CDT 03/06/2024 12:13 PM CDT Darinel Pearce [facility] CHEMISTRY [facility] [address] [place] [address], * (ABNORMAL) Basic Metabolic Panel (03/06/2024 12:05 PM CDT) Only the most recent of2 resultswithin the time period is included. SODIUM 141 136 - 145 mmol/L 03/06/2024 12:59 PM CDT [facility] POTASSIUM 3.9 3.5 - 5.1 mmol/L 03/06/2024 12:59 PM CDT [facility] CHLORIDE 100 98 - 107 mmol/L 03/06/2024 12:59 PM CDT [facility] CO2,TOTAL 27 22 - 29 mmol/L 03/06/2024 12:59 PM CDT [facility] ANION GAP 14 5 - 18 03/06/2024 12:59 PM CDT [facility] GLUCOSE 112(H) 70 - 99 mg/dL 03/06/2024 12:59 PM CDT [facility] CALCIUM 9.8 8.6 - 10.0 mg/dL 03/06/2024 12:59 PM CDT [facility] BUN 15 6 - 20 mg/dL 03/06/2024 12:59 PM T [facility] CREATININE 0.95 0.70 - 1.20 mg/dL 03/06/2024 12:59 PM CDT [facility] BUN/CREAT RATIO 16 10 - 20 12:59 PM CDT [facility] eGFR >90 >90 mL/min/1.7 3m2 03/06/2024 12:59 PM CDT [facility] Comment:As of 2021, eG FR is calculated by the CKD-EPI creatinine equation without race adjustment. ??eGFR can be influenced by muscle mass, exercise, and diet. ??The reported eGFR is an estimation only and is only applicable if the renal function is stable. Blood BLOOD SPECIMEN / Unknown Venipuncture / Unknown 03/06/2024 12:05 PM CDT 03/06/2024 12:13 PM CDT Darinel MENDOZA CHEMISTRY Performing Organization Address [facility] Co de Phone Number [facility] LAB[facility]AT[facility] [address] [place] [phone], * 12 Lead EKG (03/06/2024 12:01 PM CDT) Interpretation Sinus bradycardia Otherwise normal ECG No previous ECGs available [facility] Ventricular Rate 53 BPM [facility] NOW Atrial Rate 53 BPM [facility] NOW P-R Interval 132 ms [facility] NOW QRS Duration 88 ms [facility] NOW QT 424 ms [facility] NOW QTc 397 ms BEYOND NOW P Lyman degrees BEYOND NOW R Lyman 67 degrees BEYOND NOW T Lyman 45 degrees [facility] NOW 03/06/2024 12:0 1 PM CDT 03/08/2024 6:25 AM CDT Narrative [facility] - 03/08/2024 6:26 AM CDT Test Indication: stat Darinel MENDOZA EKG ORD Performing Organization Address [facility] de Phone Number [facility] NOW [place], [place] * PATH TISSUE EXAM (02/14/2024 9:11 AM CDT) Case Report Pathology Report ?Case: [id number] ? Authorizing Provider: ??Eulogio Stephens MD ?? Collected: ? 02/14/2024 0911 ? Ordering Location: ? [facility] ?? Received: ?02/14/2024 0943 ? Clinic ? Pathologist: ? Dieter Silva MD ? Specimen: ?Rectal Polyp ? 02/16/2024 11:13 AM T [facility]AL LABORAT[facility] Final Diagnosis A) RECTUM, POLYPECTOMY: 1. Hyperplastic polyp 02/16/2024 11:13 AM [facility] EN[facility]AL LAB[facility]AT[facility] Clinical Information Screening colonoscopy. 02/16/2024 11:13 AM [facility] Gross Description A) Received in formalin is a ingram mucosal fragment measuring 5 mm in greatest dimension, which is entirely submitted in one cassette. It is labeled with the patient's name and designated A. Beulah Pereira 02/14/2024 8:07 PM 02/16/2024 11:13 AM T [facility] ENTRAL LABORATORY Microscopic Description The final diagnosis is based on microscopic examination of appropriate sections of all specimens. 02/16/2024 11:13 AM CDT [facility] LABORAT[facility]-C ENTRAL LABORATORY Additional Information Interpreted at [facility], Central Laboratory - [address] [facility] [address], [place] [address] 02/16/2024 11:13 AM CDT [facility] LABORAT[facility]-C ENTRAL LABORATORY Other (Rectal Polyp ) Non-Blood / Unknown 02/14/2024 9:11 AM CDT 02/14/2024 9:43 AM CDT Eulogio Stephens MD PATHOLOGY/CYTOLOG Y [facility] [address] [place] [address], [place] * COLONOSCOPY (02/14/2024 7:46 AM CDT) 02/14/2024 7:46 AM CDT Narrative Transcriptions Eulogio Stephens MD - 02/14/2024 9:20 AM CDT Patient Name: Rajan Cuello Procedure Date: 02/14/2024 Gender: Male Date of : 1975 Admit Type: Outpatient Procedure: Colonoscopy Proceduralist: Eulogio Stephens MD , Hermelinda Dean RN (Nurse), Mahnaz Duff (Nurse) Indications/Pre-Op Diagnosis: Screening for colorectal malignant neoplasm, This is the patient's first colonoscopy Medications: Fentanyl 100 micrograms IV, Midazolam 4 mgIV, The level of sedation administered wasmoderate Procedure Description: The patient had risks, benefits and alternatives explained to andgave informed consent. The patient had a stable cardiopulmonary status and judged an adequate candidate for conscious sedation. The endoscope [id number]-H190L [id number] was passed through the anus andadvanced to the cecum, identified by appendiceal orifice and ileocecal valve.The colonoscopy was performed without difficulty. The patient toleratedthe procedure well. The quality of the bowel preparation was good. The ileocecal valve, appendiceal orifice, and rectum were photographed. Complications: No immediate complications. Estimated Blood Loss & Specimen: Estimated blood loss: none. Specimen collected - Yes and sent to Laboratory Findings: The perianal and digital rectal examinations were normal. A 3 mm polyp was found in the rectum. The polyp was sessile. Thepolyp was removed with a cold snare. Resection and retrieval werecomplete. The exam was otherwise without abnormality. Impressions/Post-Op Diagnosis: - One 3 mm polyp in the rectum, removed with a cold snare. Resectedand retrieved. - The examination was otherwise normal. Recommendation: - Patient has a contact number available for emergencies. The signsand symptoms of potential delayed complications were discussed with the patient. Return to normal activities tomorrow. Written discharge instructions were provided to the patient. - Resume previous diet. - Continue present medications. - Await pathology results. - Repeat colonoscopy is recommended. The colonoscopy date will be determined after pathology results from today's exam become available for review. Moderate Sedation: A time out was performed before the procedure. Moderate (conscious) sedation was administered by the endoscopy nurse and supervised bythe endoscopist. The following parameters were monitored: oxygensaturation, heart rate, blood pressure, EKG, CO2, respiratory rate, adequacy of pulmonary ventilation and reponse to care. Please refer to the patient's medical record flowsheets and nursing notes for moderate sedation details. Total physician intraservice time was 19 minutes. Eulogio Stephens MD 02/14/2024 9:20:41 AM This report has been signed electronically. Note Initiated On: 02/14/2024 7:46 AM Procedure Code(s): --- Professional --- 73191, Colonoscopy, flexible; with removalof tumor(s), polyp(s), or other lesion(s) bysnare technique Diagnosis Code(s): --- Professional --- Z12.11, Encounter for screening formalignant neoplasm of colon D12.8, Benign neoplasm of rectum CPT copyright 2022 [employer]. All rights reserved. The codes documented in this report are preliminary and upon redipper reviewmay be revised to meet current compliance requirements. Scope In: 8:54:43 AM Scope Withdrawal Time 0 hours 11 minutes 23 seconds Scope Out: 9:11:02 AM Eulogio Stephens MD PROCEDURE ORD * ANTI HCV (01/01/2024 8:17 AM CDT) HEPATITIS C ANTIBODY Non-Reacti ve Non-React fabrice 01/01/2024 6:33 PM CDT [facility] Comment:Please note, per www .CDC.gov: If a patient is known to be at high risk of HCV infection, or is symptomatic, and the physician's suspicion of HCV infection is high, HCV RNA testing is often employed and is of diagnostic value, even after an initial negative anti-HCV test result. Blood BLOOD SPECIMEN / Unknown Venipuncture / Unknown 01/01/2024 8:17 AM CDT 01/01/2024 8:19 AM CDT Alta Vasquez DO SEND OUTS [facility] [address] [place] [address], * ANTI HIV 1/2 [94477.0] (01/01/2024 8:17 AM CDT) HIV-1/HIV-2 SCREEN Non-Reacti ve Non-Reacti ve 01/01/2024 3:17 PM CDT [facility] Comment:HIV-1 p24 and HIV-1/ HIV-2 Ab Not Detected. Blood BLOOD SPECIMEN / Unknown Venipuncture / Unknown 01/01/2024 8:17 AM CDT 01/01/2024 8:19 AM CDT Alta Vasquez DO SEND OUTS Performing Organization Address City/[facility]/ZIP Co de Phone Number [facility]TRAL LAB[facility]ATORY [address] [place] [address], [place] * (ABNORMAL) LIPID PANEL (01/01/2024 8:17 AM CDT) [facility] CHOLESTEROL,TOTAL 150 100 - 199 mg/dL 01/01/2024 3:30 PM CDT [facility] Comment: Cholesterol, Total Reference Ranges Desirable <200 mg/dL Borderline 200-239 mg/dL High >=240 mg/dL TRIGLYCERIDES 115 <150 mg/dL 01/01/2024 3:30 PM CDT [facility] HDL CHOLESTEROL 36(L) >40 mg/dL 3:30 PM CDT [facility] NON-HDL CHOLESTEROL 114 <145 mg/dl 01/01/2024 3:30 PM CDT [facility] CHOL/HDL RATIO 4.17 <4.50 01/01/2024 3:30 PM CDT [facility] LDL CHOLESTEROL 91 <=130 mg/dL 01/01/2024 3:30 PM CDT [facility] VLDL CHOLESTEROL 23 <=30 mg/dL 01/01/2024 3:30 PM CDT [facility] PROVIDER ORDERED STATUS RANDOM 01/01/2024 3:30 PM CDT [facility] Blood BLOOD SPECIMEN / Unknown Venipuncture / Unknown 01/01/2024 8:17 AM CDT 01/01/2024 8:19 AM CDT Alta Vasquez DO CHEMISTRY Performing Organization Address City/[facility]/ZIP Co de Phone Number [facility] [address] [place] [address], [place] from Last 3 Months Advance Directives * Full Code (Latest Code Status on File) Date Activated Date Inactivated Comments 03/06/2024 11:51 AM 03/07/2024 5:21 PM Question Answer Comments Code Status Discussion: Unable to Assess Preferences, Provider to review later Care Teams Examination Grader Relationship Specialty Start Date End Date Alta Vasquez DO [facility] [place] [address] PCP - General Family Practice 01/15/24
== END 2024-03-06 10:50 | disposition home or self-care (01) ==
LOC: AMB 03-09 08:48
PROVIDERS: PCP Student in an Organized Health Care Education/Training Program; Visit Provider Emergency Medicine
DX: S06.5XAA Traumatic subdural hemorrhage with loss of consciousness status unknown, initial encounter (principal)
CPT/HCPCS: A0425; A0427

== ENCOUNTER 2024-03-21 07:44 | Outpatient (CLI) | payer OTHER, SELFPAY ==
--- OUTSIDE RECORDS SUMMARY | 2024-03-21 07:46 | XMS_ITS | Clinical Summary ---
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 Role Phone Alta Vasquez DO Primary Care Provider Gabriela Masters RN Unavailable [phone] Jessika Patrick Unavailable Allergies No known active allergies Medications Medication Sig Dispensed Refills Start Date End Date Status CPAPIndications:MERLY (obstructive sleep apnea) CPAP machine for home use at pressure 12.8 cm/H2o, full face mask x1/3month with a full face cushion x1/mo 1 Device 11 08/19/2020 Active polyethylene glycol-electrolyte (GOLYTELY) 236-22.74-6.74 -5.86 gram suspensionIndicatio ns:Encounter for screening colonoscopy Drink 2 liters the day before colonoscopy and 2 liters 6 hours before colonoscopy appointment 4000 mL 02/05/2024 02/26/20 24 Discontinue d(*Med complete/Re gimen complete/Le dwayne of care change) buPROPion (WELLBUTRIN XL) 150 mg Extended-Release tabletIndications:A 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 90 Tablet 3 01/15/2024 02/26/20 24 Discontinue d(*Med complete/Re gimen complete/[place] dwayne of care change) lisdexamfetamine (Vyvanse) 20 mg capsuleIndications: Attention deficit disorder (ADD) without hyperactivity Take 1 Capsule (20 mg) by mouth once daily. 30 Capsule 02/26/2024 03/07/20 24 Discontinue d(*IP Discontinue d) oxyCODONE (ROXICODONE) 5 mg immediate release tabletIndications:T raumatic subdural hematoma with loss of consciousness of 30 minutes or less (HC) Take 1 Tablet (5 mg) by mouth every 6 hours if needed for Pain. 15 Tablet 03/07/2024 03/18/20 24 Discontinue d(*Patient states no longer taking) levETIRAcetam (Keppra) 500 mg tabletIndications:T raumatic subdural hematoma with loss of consciousness of 30 minutes or less (HC) Take 1 Tablet (500 mg) by mouth two times daily for 7 days. 14 Tablet 03/07/2024 03/18/20 Discontinue d(*Med complete/Re gimen complete/[place] dwayne of care change) ondansetron (ZOFRAN ODT) 4 mg disintegrating tabletIndications:T raumatic subdural hematoma with loss of consciousness of 30 minutes or less (HC) Place 2 Tablets (8 mg) on the tongue every 8 hours if needed for Nausea/Vomiting for up to 5 days. 15 Tablet 03/07/2024 03/12/20 Active Problems Problem Noted Date Diagnosed Date Closed head injury with loss of consciousness of unknown duration 03/13/2024 Overview (03/13/2024): Feb 2024: Was on ladder, unknown details. Had Subdural hematoma. Traumatic subdural hematoma with loss of consciousness of 30 minutes or less 03/06/2024 Sialorrhea 05/29/2017 MERLY 04/03/2017 AHI-52 with oxygen drops 04/10/20 17 DDD (degenerative disc disease), cervical 2016 Encounters Date Type Department Care Team Description 03/20/2024 9:10 AM CDT Office Visit [facility] [address] [place] [address] Suhail Sanchez MD Concussion (Fall 03/04/24) 03/20/2024 Travel 03/18/2024 2:55 PM CDT Office Visit [facility] [address] [place] [address] Alta Vasquez, Medication Management 03/18/2024 Travel 03/15/2024 3:01 PM CDT - 03/15/2024 11:59 PM CDT Hospital Encounter [facility] [place] [id number] [place], [place] [address]e [address] [place] [address] Nory Castellano MD Lonetti, Jennifer D, PT Traumatic subdural hematoma with loss of consciousness of 30 minutes or less (HC) 03/15/2024 Travel 03/13/2024 Patient Outreach [facility] [address] [place] [address] Gabriela Masters, RANJEET Brain Injury Rehab Care Coordination - [facility] 03/12/2024 Telephone [facility] [address] [facility] [address] [place] [phone] Howie Temple MD Appointment 03/11/2024 12:35 PM CDT Office Visit [facility] [address] [place] [address] Hill Sauceda MD Hospital F/U ([facility] DOD: 03/07/2024/Traumatic Subdural Hematoma with LOC x 30 minutes - DOI: 03/04/2024) 03/11/2024 Telephone [facility] [place] [address] [facility] [address] [place] [address] Suhail Sanchez MD Appointment 03/11/2024 Travel 03/08/2024 Patient Outreach [facility] [address] [place] [address] Pilar Schreiber, RN Primary RN Care Management (Lace 12); Hospital F/U 03/07/2024 Orders Only [facility] [address] [facility] [address] [place] [phone] Lesly Marin NP <No scans attached> 03/06/2024 11:48 AM CDT - 03/07/2024 2:40 PM CDT Hospital Encounter [facility] [address] [place] [address] [place] [employer] [employer] Malik, Muhammad Ibrahim, MD Traumatic subdural hematoma with loss of consciousness of 30 minutes or less (HC) (Primary Dx) Discharge Disposition: Home Self Care 03/06/2024 Orders Only [facility] Scanner 1 scan: (1-Ord) [facility], CT ANGIO HEAD, 03/06/2024 03/06/2024 Orders Only [facility] Scanner 1 scan: (1-Ord) [facility], CTA NECK, 03/06/2024 03/06/2024 Nurse Triage [address] [address] Alta Vasquez DO Head Injury 02/26/2024 8:55 AM CDT Office Visit [address] [address] Alta Vasquez DO Medication Management (Nothing different) 02/26/2024 Travel 02/14/2024 8:00 AM CDT Office Visit [address] [address] Eulogio Stephens MD Procedure (colonoscopy) 02/14/2024 Travel 02/07/[address] [address] Eulogio Stephens MD Appointment Reminder (Colonoscopy 02/14/24) 01/15/2024 7:15 AM CDT Office Visit [address] [address] Alta Vasquez DO Behavioral Problem (ADHD assessment from online provider - will fax report ) 01/15/2024 Travel 01/02/[address] [address] Alta Vasquez DO Results 01/01/2024 7:15 AM CDT Office Visit [address] [address] Alta Vasquez DO Physical (48 year old ); Behavior Problem (Hard to focus at work, staying concentrated, frustrated ) 01/01/[address] [place] [address] Eulogio Stephens MD Screening 01/01/2024 Travel from [...] Sign Reading Time Taken Comments Blood Pressure 133/82 03/18/2024 3:03 PM CDT Pulse 102 03/18/2024 3:03 PM CDT Temperature 36.8 ??C (98.3 ??F) 03/07/2024 7:30 AM CD T Respiratory Rate 18 03/07/2024 7:30 AM CDT Oxygen Saturation 99% 03/18/2024 3:03 PM CDT Inhaled Oxygen Concentration - - Weight 82.5 kg (181 lb 12.8 oz) 03/18/2024 3:03 PM CDT Height 169 cm (5' 6.54) 01/01/2024 7:25 AM CDT Body Mass Index 28.87 01/01/2024 7:25 AM CDT Plan of Treatment Upcoming Encounters Date Type Department Care Team (Late st Contact Info) Description 04/01/2024 12:30 PM CDT Telemed[facility] [address] [phone] Lesly Marin, ZANE [address] [place] [address] 04/17/2024 8:50 AM CDT Office Visit [facility] [address] [address] [place] [address] [address] 05/07/2024 10:00 AM VIDEO NEWS EDITOR Office Visit [facility] [address] [place] [address] Denis Saunders MD [address] [place] [address] 07/31/2024 8:30 AM VIDEO NEWS EDITOR Office Visit [facility] [address] [address] [place] [address] [address] Health Maintenance Due Date Last Done Comments [...] Procedure Name Priority Date/Time Associated Diagnosis Comments SCAN CORRESP-EKG RESULTS 03/11/2024 1:55 PM CDT SCAN CORRESP-IMAGING 03/11/2024 1:55 PM CDT SCAN CORRESP-IMAGING 03/11/2024 1:55 PM CDT SCAN-CARDIAC STRIP 03/07/2024 7: 30 AM CDT [...] 12 LEAD STAT 03/06/2024 12:01 PM CDT SCAN-CT INTERPRETATION 03/06/2024 12:00 AM CDT SCAN-CT INTERPRETATION 03/06/2024 12:00 AM CDT PATH TISSUE EXAM Routine 02/14/2024 9:11 [...] virus) from Last 3 Months Results * SCAN CORRESP-EKG RESULTS (03/11/2024 1:55 PM CDT) Narrative 03/11/2024 1:55 PM CDT Ordered by an unspecified provider. Other Clinical Staff OTHER * SCAN CORRESP-IMAGING (03/11/2024 1:55 PM CDT) Only the most recent of2 resultswithin the time period is included. Anatomical Region Laterality Modality Other Narrative 03/11/2024 1:55 PM CDT Ordered by an unspecified provider. Other Clinical Staff OTHER * SCAN-CARDIAC STRIP (03/07/2024 7:30 AM CDT) Scanner OTHER * GLUCOSE METER (03/07/2024 6:18 AM CDT) Only the most recent of3 resultswithin the time period is included. GLUCOSE METER 96 65 - 100 mg/dL 03/07/2024 6:24 AM CDT [facility] Blood BLOOD SPECIMEN / Unknown 03/07/2024 6:18 AM CDT 03/07/2024 6:24 AM CDT Nory Castellano MD CHEMISTRY [facility] [address] [place] [address], * CT HEAD BRAIN WO (03/07/2024 4:20 [...] For Patients: As a result of the Century Cures Act, medical imagingexams and procedure reports [...] 03/07/2024 7:35:24 AM (Electronically Signed) Lesly Marin ASSEMBLIES AND INSTALLATIONS INSPECTOR CT * (ABNORMAL) CALCIUM IONIZED HOSPITAL DRAW ONLY (03/07/2024 3:52 AM CDT) CALCIUM,IONIZE D 1.14(L) 1.15 - 1.27 mmol/L 03/07/2024 4:11 AM CDT [facility] Blood BLOOD SPECIMEN / Unknown Butterfly / Unknown 03/07/2024 3:52 AM CDT 03/07/2024 4:05 AM CDT Nory Castellano MD CHEMISTRY [facility] [address] [place] [address], [place] * (ABNORMAL) CBC WITH AUTO DIFFERENTIAL (03/07/2024 3:51 AM CDT) Only the most recent of2 resultswithin the time period is included. WHITE BLOOD COUNT 12.9(H) 4.5 - 11.0 thou/cu mm 03/07/2024 4:12 AM CDT [facility] RED BLOOD COUNT 5.33 4.30 - 5.90 mil/cu mm 03/07/2024 4:12 AM CDT [facility] HEMOGLOBIN 16.1 13.5 - 17.5 g/dL 03/07/2024 4:12 AM CDT [facility] HEMATOCRIT 46.6 37.0 - 53.0 % 03/07/2024 4:12 AM CDT [facility] MCV 87 80 - 100 fL 03/07/2024 4:12 AM CDT [facility] MCH 30.2 26.0 - 34.0 pg 03/07/2024 4:12 AM CDT [facility] MCHC 34.5 32.0 - 36.0 g/dL 03/07/2024 4:12 AM CDT [facility] RDW 12.4 11.5 - 15.5 % 03/07/2024 4:12 AM CDT [facility] PLATELET COUNT 311 140 - 440 thou/cu mm 03/07/2024 4:12 AM CDT [facility] MPV 9.3 6.5 - 11.0 fL 03/07/2024 4:12 AM CDT [facility] NRBC 0.0 % 03/07/2024 4:12 AM CDT [facility] ABS NRBC 0.0 thou /cu mm 03/07/2024 4:12 AM CDT [facility] % NEUT 69.3 % 03/07/2024 4:12 AM CDT [facility] % LYMPH 20.7 % 03/07/2024 4:12 AM CDT [facility] % MONO 9.0 % 03/07/2024 4:12 AM CDT [facility] % EOS 0.4 % 03/07/2024 4:12 AM CDT [facility] % BASO 0.4 % 03/07/2024 4:12 AM CDT [facility] % IMMATURE GRAN (METAS,MYELOS,MO OS) 0.2 % 03/07/2024 4:12 AM CDT [facility] ABSOLUTE NEUTROPHILS 8.9(H) 1.7 - 7.0 thou/cu mm 03/07/2024 4:12 AM CDT [facility] ABSOLUTE LYMPHOCYTES 2.7 0.9 - 2.9 thou/cu mm 03/07/2024 4:12 AM CDT [facility] ABSOLUTE MONOCYTES 1.2(H) <0.9 thou/cu mm 03/07/2024 4:12 AM CDT [facility] ABSOLUTE EOSINOPHILS 0.1 <0.5 thou/cu mm 03/07/2024 4:12 AM CDT [facility] ABSOLUTE BASOPHILS 0.1 <0.3 thou/cu mm 03/07/2024 4:12 AM CDT [facility] ABSOLUTE IMMATURE GRANULOCYTES(MET ,MYELOS,PROS) 0.0 <0.3 thou/cu mm 03/07/2024 4:12 AM CDT [facility] Blood BLOOD SPECIMEN / Unknown Butterfly / Unknown 03/07/2024 3:51 AM CDT 03/07/2024 4:04 AM CDT Nory Castellano MD HEMATOLOGY [facility] [address] [place] [address], * PHOSPHORUS (03/07/2024 3:51 AM CDT) PHOSPHORUS 3.4 2.5 - 4.5 mg/dL 03/07/2024 4:32 AM CDT [facility] Blood BLOOD SPECIMEN / Unknown Butterfly / Unknown 03/07/2024 3:51 AM CDT 03/07/2024 4:04 AM CDT Nory Castellano MD CHEMISTRY [facility] [address] [place] [address], [place] * MAGNESIUM (03/07/2024 3:51 AM CDT) MAGNESIUM 2.4 1.6 - 2.6 mg/dL 03/07/2024 4:32 AM CDT [facility] Blood BLOOD SPECIMEN / Unknown Butterfly / Unknown 03/07/2024 3:51 AM CDT 03/07/2024 4:04 AM CDT Nory Castellano MD CHEMISTRY Performing Organization Address City/[facility]/ZIP Co de Phone Number [facility] [address] [place] [address], * (ABNORMAL) COMP METABOLIC PANEL (03/07/2024 3:51 AM CDT) SODIUM 140 136 - 145 mmol/L 03/07/2024 4:32 AM CDT [facility] POTASSIUM 3.5 3.5 - 5.1 mmol/L 03/07/2024 4:32 AM CDT [facility] CHLORIDE 101 98 - 107 mmol/L 03/07/2024 4:32 AM CDT [facility] CO2,TOTAL 25 22 - 29 mmol/L 03/07/2024 4:32 AM CDT [facility] ANION GAP 14 5 - 18 03/07/2024 4:32 AM CDT [facility] GLUCOSE 107(H) 70 - 99 mg/dL 03/07/2024 4:32 AM CDT [facility] CALCIUM 9.3 8.6 - 10.0 mg/dL 03/07/2024 4:32 AM T [facility] BUN 16 6 - 20 mg/dL 03/07/2024 4:32 AM T [facility] CREATININE 0.87 0.70 - 1.20 mg/dL 03/07/2024 4:32 AM T [facility] BUN/CREAT RATIO 18 10 - 20 4:32 AM T [facility] eGFR >90 >90 mL/min/1.7 3m2 03/07/2024 4:32 AM T [facility] Comment:As of 2021, eG FR is calculated by the CKD-EPI creatinine equation without race adjustment. ??eGFR can be influenced by muscle mass, exercise, and diet. ??The reported eGFR is an estimation only and is only applicable if the renal function is stable. ALBUMIN 4.6 4.0 - 4.9 g/dL 03/07/2024 4:32 AM T [facility] PROTEIN,TOTAL 7.4 6.0 - 8.0 g/dL 03/07/2024 4:32 AM T [facility] BILIRUBIN,TOTAL 0.8 0.0 - 1.2 mg/dL 03/07/2024 4:32 AM T [facility] ALK PHOSPHATASE 114 40 - 129 IU/L 03/07/2024 4:32 AM T [facility] ALT (SGPT) 22 10 - 50 IU/L 03/07/2024 4:32 AM T [facility] AST (SGOT) 19 10 - 50 IU/L 03/07/2024 4:32 AM T [facility] Blood BLOOD SPECIMEN / Unknown Butterfly / Unknown 03/07/2024 3:51 AM CDT 03/07/2024 4:04 AM CDT Nory Castellano MD CHEMISTRY [facility] [address] [place] [address], * SCAN-CARDIAC STRIP (03/06/2024 8:52 PM CDT) [...] INR 1.2 <1.3 03/06/2024 12:29 PM CDT [facility] PROTIME 13.0(H) 10.3 - 12.3 sec 03/06/2024 12:29 PM CDT [facility] Blood BLOOD SPECIMEN / Unknown Venipuncture / Unknown 03/06/2024 12:05 PM CDT 03/06/2024 12:13 PM CDT Narrative [facility] - 03/06/2024 12:29 PM CDT ?Therapeutic [...] if the patient is on UFH. Darinel MNEDOZA HEMATOLOGY [facility] [address] [address], * Hepatic Function Panel (03/06/2024 12:05 PM CDT) ALBUMIN 4.8 4.0 - 4.9 g/dL 03/06/2024 12:59 PM CDT [facility] PROTEIN,TOTAL 8.0 6.0 - 8.0 g/dL 03/06/2024 12:59 PM CDT [facility] BILIRUBIN,TOTAL 0.6 0.0 - 1.2 mg/dL 03/06/2024 12:59 PM CDT [facility] BILIRUBIN,DIRECT 0.2 0.0 - 0.2 mg/dL 03/06/2024 12:59 PM CDT [facility] BILIRUBIN,INDIRE CT 0.4 0.2 - 0.8 mg/dL 03/06/2024 12:59 PM CDT [facility] ALK PHOSPHATASE 118 40 - 129 IU/L 03/06/2024 12:59 PM CDT [facility] ALT (SGPT) 25 10 - 50 IU/L 03/06/2024 12:59 PM CDT [facility] AST (SGOT) 24 10 - 50 IU/L 03/06/2024 12:59 PM CDT [facility] Blood BLOOD SPECIMEN / Unknown Venipuncture / Unknown 03/06/2024 12:05 PM CDT 03/06/2024 12:13 PM CDT Darinel MENDOZA CHEMISTRY [facility] [address] [place] [address], * (ABNORMAL) Basic Metabolic Panel (03/06/2024 12:05 PM CDT) Only the most recent of2 resultswithin the time period is included. SODIUM 141 136 - 145 mmol/L 03/06/2024 12:59 PM CDT [facility] POTASSIUM 3.9 3.5 - 5.1 mmol/L 03/06/2024 12:59 PM CDT [facility] CHLORIDE 100 98 - 107 mmol/L 03/06/2024 12:59 PM CDT [facility] CO2,TOTAL 27 22 - 29 mmol/L 03/06/2024 12:59 PM CDT [facility] ANION GAP 14 5 - 18 03/06/2024 12:59 PM CDT [facility] GLUCOSE 112(H) 70 - 99 mg/dL 03/06/2024 12:59 PM CDT [facility] CALCIUM 9.8 8.6 - 10.0 mg/dL 03/06/2024 12:59 PM CDT [facility] BUN 15 6 - 20 mg/dL 03/06/2024 12:59 PM T [facility] CREATININE 0.95 0.70 - 1.20 mg/dL 03/06/2024 12:59 PM T [facility] BUN/CREAT RATIO 16 10 - 20 12:59 PM CDT [facility] eGFR >90 >90 mL/min/1.7 3m2 03/06/2024 12:59 PM T [facility] Comment:As of 2021, eG FR is calculated by the CKD-EPI creatinine equation without race adjustment. ??eGFR can be influenced by muscle mass, exercise, and diet. ??The reported eGFR is an estimation only and is only applicable if the renal function is stable. Blood BLOOD SPECIMEN / Unknown Venipuncture / Unknown 03/06/2024 12:05 PM CDT 03/06/2024 12:13 PM CDT Darinel MENDOZA CHEMISTRY [facility] [address] [place] [address], * 12 Lead EKG (03/06/2024 12:01 PM CDT) Interpretation Sinus bradycardia Otherwise normal ECG No previous ECGs available BEYOND NOW Ventricular Rate 53 BPM BEYOND NOW Atrial Rate 53 BPM BEYOND NOW P-R Interval 132 ms BEYOND NOW QRS Duration 88 ms BEYOND NOW QT 424 ms BEYOND NOW QTc 397 ms BEYOND NOW P [place] degrees BEYOND NOW R [place] 67 degrees BEYOND NOW T [place] 45 degrees BEYOND NOW 03/06/2024 12:0 1 PM CDT 03/08/2024 6:25 AM CDT Narrative BEYOND NOW - 03/08/2024 6:26 AM CDT Test Indication: stat Darinel MENDOZA EKG ORD BEYOND NOW [place], [place] * SCAN-CT INTERPRETATION (03/06/2024 12:00 AM CDT) Only the most recent of2 resultswithin the time period is included. Anatomical Region Laterality Modality Other Scanner OTHER * PATH TISSUE EXAM (02/14/2024 9:11 AM CDT) Case Report Pathology Report ?Case: [id number] ? Authorizing Provider: ??Eulogio Stephens MD ?? Collected: ? 02/14/2024 0911 ? Ordering Location: ? [facility] ?? Received: ?02/14/2024 0943 ? Clinic ? Pathologist: ? Dieter Silva MD ? Specimen: ?Rectal Polyp ? 02/16/2024 11:13 AM CDT [facility] Final Diagnosis A) RECTUM, POLYPECTOMY: 1. Hyperplastic polyp 02/16/2024 11:13 AM T [facility] Clinical Information Screening colonoscopy. 02/16/2024 11:13 AM T [facility] Gross Description A) Received in formalin is a ingram mucosal fragment measuring 5 mm in greatest dimension, which is entirely submitted in one cassette. It is labeled with the patient's name and designated A. Beulah Pereira 02/14/2024 8:07 PM 02/16/2024 11:13 AM T [facility] Microscopic Description The final diagnosis is based on microscopic examination of appropriate sections of all specimens. 02/16/2024 11:13 AM T [facility] Additional Information Interpreted at [facility] - [address] [place] [address] 02/16/2024 11:13 AM [facility] Other (Rectal Polyp ) Non-Blood / Unknown 02/14/2024 9:11 AM CDT 02/14/2024 9:43 AM CDT Eulogio Stephens MD PATHOLOGY/CYTOLOG Y [facility] [address] [place] [address], [place] * COLONOSCOPY (02/14/2024 7:46 AM CDT) 02/14/2024 7:46 AM CDT Narrative Transcriptions Eulogio Stephens MD - 02/14/2024 9:20 AM CDT Patient Name: Rajan Cuello Procedure Date: 02/14/2024 Gender: Male Date of : 1975 Admit Type: Outpatient Procedure: Colonoscopy Proceduralist: Eulogio Stephens MD , Hermelinda Dean, RANJEET (Nurse), Mahnaz Duff (Nurse) Indications/Pre-Op Diagnosis: Screening for colorectal malignant neoplasm, This is the patient's first colonoscopy Medications: Fentanyl 100 micrograms IV, Midazolam 4 mgIV, The level of sedation administered wasmoderate Procedure Description: The patient had risks, benefits and alternatives explained to andgave informed consent. The patient had a stable cardiopulmonary status and judged an adequate candidate for conscious sedation. The endoscope [id number]-H190L [id number] was passed through the anus andadvanced to [...] 7:46 AM Procedure Code(s): --- Professional --- 75174, Colonoscopy, flexible; with removalof tumor(s), polyp(s), or other lesion(s) bysnare technique Diagnosis Code(s): --- Professional --- Z12.11, Encounter for screening formalignant neoplasm of colon D12.8, Benign neoplasm of rectum CPT copyright 2022 [employer]. All rights reserved. The codes documented in this report are preliminary and upon photo graphics librarian reviewmay be revised to meet current compliance requirements. Scope In: 8:54:43 AM Scope Withdrawal Time 0 hours 11 minutes 23 seconds Scope Out: 9:11:02 AM Eulogio Stephens MD PROCEDURE ORD * ANTI HCV (01/01/2024 8:17 AM CDT) [facility] HEPATITIS C ANTIBODY Non-Reacti ve Non-React fabrice 01/01/2024 6:33 PM CDT [facility] Comment:Please note, per www .CDC.gov: [...] 8:17 AM CDT 01/01/2024 8:19 AM CDT Serenayusuf Justinsai DO SEND OUTS Performing Organization Address City/[facility]/ZIP Co de Phone Number [facility] [address] [place] [address], [place] * ANTI HIV 1/2 [89872.0] (01/01/2024 8:17 AM CDT) [facility] HIV-1/HIV-2 SCREEN Non-Reacti ve Non-Reacti ve 01/01/2024 3:17 PM CDT [facility] Comment:HIV-1 p24 and HIV-1/ HIV-2 Ab Not Detected. Blood BLOOD SPECIMEN / Unknown Venipuncture / Unknown 01/01/2024 8:17 AM CDT 01/01/2024 8:19 AM CDT Serenayusuf Vasquez DO SEND OUTS Performing Organization Address City/[facility]/ZIP Co de Phone Number [facility] [address] [place] [address], [place] * (ABNORMAL) LIPID PANEL (01/01/2024 8:17 AM CDT) CHOLESTEROL,TOTAL 150 100 - 199 mg/dL 01/01/2024 3:30 PM CDT [facility] Comment: Cholesterol, Total Reference Ranges Desirable <200 mg/dL Borderline 200-239 mg/dL High >=240 mg/dL TRIGLYCERIDES 115 <150 mg/dL 01/01/2024 3:30 PM CDT [facility] HDL CHOLESTEROL 36(L) >40 mg/dL 3:30 PM CDT [facility] NON-HDL CHOLESTEROL 114 <145 mg/dl 01/01/2024 3:30 PM CDT [facility] CHOL/HDL RATIO 4.17 <4.50 01/01/2024 3:30 PM CDT [facility] LDL CHOLESTEROL 91 <=130 mg/dL 01/01/2024 3:30 PM CDT [facility] VLDL CHOLESTEROL 23 <=30 mg/dL 01/01/2024 3:30 PM CDT [facility] PROVIDER ORDERED STATUS RANDOM 01/01/2024 3:30 PM CDT [facility] Blood BLOOD SPECIMEN / Unknown Venipuncture / Unknown 01/01/2024 8:17 AM CDT 01/01/2024 8:19 AM CDT Alta Vasquez DO CHEMISTRY [facility] [address] [address], from Last 3 Months Advance Directives * Full Code (Latest Code Status on File) Date Activated Date Inactivated Comments 03/06/2024 11:51 AM 03/07/2024 5:21 PM Question Answer Comments Code Status Discussion: Unable to Assess Preferences, Provider to review later Care Teams [employer] Trades Worker Relationship Specialty Start Date End Date Alta Vasquez DO [address] [place] [address] PCP - General Family Practice 01/15/24 Gabriela Masters, RN [address] [place], [place] [id number] [facility] - [facility] Advertising Inserter 03/13/24 Jessika Patrick [address] [address] [facility] - [facility] Care Guide 03/13/24
--- NOTE | 2024-03-21 08:00 | CRLHL7_ITS ---
For Patients: As a result of the Century Cures Act, medical imaging exams and procedure reports are released immediately into your electronic medical record. You may view this report before your referring provider. If you have questions, please contact your health care provider. INDICATION: History of subdural hematomas. TECHNIQUE: Non-contrast CT of the head is submitted. Compared to prior study from March 06, 2024 FINDINGS: The ventricles, sulci and gyri are of normal size, shape and contour. Midline structures are centrally located. No convincing evidence of intra- or extra-axial fluid collections. Has been interval resolution of prior noted bifrontal subdural hematomas. Prior noted thin anterior falcine subdural hematoma also appears to have been resolved. IMPRESSION: 1. No radiographic evidence of acute intracranial abnormalities. There appears to be interval resolution of prior noted frontal subdural hematomas. Please note that all CT scans at this facility use dose modulation, iterative reconstruction, and/or weight-based dosing when appropriate to reduce radiation dose to as low as reasonably achievable. Dictated by Mason Goff MD @ 03/21/2024 6:24:45 PM (Electronically Signed)
== END 2024-03-21 07:45 | disposition home or self-care (01) ==
LOC: CT 07:44
PROVIDERS: PCP Student in an Organized Health Care Education/Training Program; Visit Provider Nurse Practitioner Family
DX: S06.5X1D Traumatic subdural hemorrhage with loss of consciousness of 30 minutes or less, subsequent encounter (principal)
CPT/HCPCS: 70450